=== PATIENT | male | born 1980 | race Caucasian/White ===

== ENCOUNTER 2022-08-10 18:19 | Emergency (ER) | payer OTHER ==
[~2022-08-10] VITALS: Ht 170.2 cm; Wt 106.4 kg
[2022-08-10] MEDS ORDERED: LISINOPRIL10 MG PO (18:43)
[2022-08-10 18:45] LABS: BASO # 0.07 K/mm3 (0.02-0.10); EOS # 0.15 K/mm3 (0.04-0.40); EOS % 1.2 % (0.0-4.0); HEMATOCRIT 46.6 % (42.0-52.0); MEAN CELL VOLUME 89 fl (78-100); MEAN CORPUSCULAR HEMOGLOBIN 30 pg (27-31); MEAN CORPUSCULAR HGB CONC 34 g/dL (33-37); MEAN PLATELET VOLUME 9.5 fl (7.4-10.4); MONO # 1.07 K/mm3 (0.20-0.80); NEU # 8.03 K/mm3 (1.40-6.50); PLATELET COUNT 364 K/mm3 (130-400); RED BLOOD COUNT 5.26 M/mm3 (4.20-5.60); RED CELL DISTRIBUTION WIDTH 11.5 % (11.5-14.5); WHITE BLOOD COUNT 12.1 K/mm3 (4.8-10.8)
[2022-08-10 18:50] LABS: ALBUMIN 4.6 g/dL (3.5-5.0)
[2022-08-10 18:52] LABS: CALCIUM 10.2 mg/dL (8.3-10.5)
[2022-08-10 18:55] LABS: TOTAL BILIRUBIN 0.6 mg/dL (0.2-1.2)
[2022-08-10] MEDS ORDERED: CIPRO500 M1 PO (20:58)
[2022-08-10] MEDS ORDERED: METRONIDAZOLE500 M1 PO (20:58)
[2022-08-10 21:20] VITALS: BP 149/100
[2022-08-10 21:45] LABS: PH-URINE 6.5 (5.0 - 8.0); URINE APPEARANCE CLEAR; URINE COLOR YELLOW
[2022-08-10 21:46] LABS: URINE PROTEIN(semi-quant) TRACE (NEGATIVE)
[2022-08-10 21:47] LABS: URINE BILIRUBIN NEGATIVE (NEGATIVE); URINE BLOOD NEGATIVE (NEGATIVE); URINE GLUCOSE NEGATIVE (NEGATIVE); URINE KETONE NEGATIVE (NEGATIVE); URINE LEUKOCYTE ESTERASE NEGATIVE (NEGATIVE); URINE NITRATE NEGATIVE (NEGATIVE); URINE WBC 0-1 /hpf (0-3)
== END 2022-08-10 21:20 | disposition home or self-care (01) ==
LOC: ED 18:19
PROVIDERS: Family Medicine
DX: K29.70 Gastritis, unspecified, without bleeding (principal); K59.00 Constipation, unspecified; E66.9 Obesity, unspecified; Z88.0 Allergy status to penicillin
CPT/HCPCS: J7030; Q9967

== ENCOUNTER → 2022-09-16 | Outpatient (CLI) | payer OTHER ==
[~2022-09-16] MED LIST: CIPRO500 M1 PO; LISINOPRIL10 MG PO; METRONIDAZOLE500 M1 PO
== END ==
LOC: RAD 15:57
DX: M19.071 Primary osteoarthritis, right ankle and foot (principal); V87.7XXS Person injured in collision between other specified motor vehicles (traffic), sequela

== ENCOUNTER → 2022-10-07 | Outpatient (CLI) | payer OTHER | LOC: RAD 12:45 | DX: R22.1 Localized swelling, mass and lump, neck (principal) ==

== ENCOUNTER → 2023-07-24 | Day surgery (SDC) | payer OTHER | END | disposition home or self-care (01) | LOC: MSO 07:21 | DX: Z12.11 Encounter for screening for malignant neoplasm of colon (principal); D12.3 Benign neoplasm of transverse colon; D12.5 Benign neoplasm of sigmoid colon; K63.5 Polyp of colon; G47.33 Obstructive sleep apnea (adult) (pediatric) | CPT/HCPCS: 00811; J2704; J7120 ==

== ENCOUNTER 2024-02-13 19:23 | Emergency (ER) | payer OTHER ==
[2024-02-13 21:25] VITALS: BP 124/74
== END 2024-02-13 21:25 | disposition home or self-care (01) ==
LOC: ED 19:23
DX: S90.31XA Contusion of right foot, initial encounter (principal); W10.8XXA Fall (on) (from) other stairs and steps, initial encounter; Y93.01 Activity, walking, marching and hiking

== ENCOUNTER → 2024-07-26 | Outpatient (CLI) | payer OTHER ==
[~2024-07-26] MED LIST changes: +Iohexol 300 - 100 ML VIAL IV ONE
== END ==
LOC: RAD 08:40
DX: R10.9 Unspecified abdominal pain (principal)
CPT/HCPCS: Q9967